=== PATIENT | male | born 1985 | race Caucasian/White ===

== ENCOUNTER 2016-04-11 15:37 | Emergency (ER) | payer OTHER ==
[~2016-04-11] VITALS: Ht 177.8 cm; Wt 120.0 kg
[2016-04-11 15:42] VITALS: Ht 177.8 cm; Wt 120.0 kg
[2016-04-11] MEDS ORDERED: ONDA4TAB14 PO (16:53)
[2016-04-11] MEDS ORDERED: LORA-441 PO (16:53)
--- NOTE | 2016-04-11 17:41 | ERD ---
ER Documentation Chief Complaint Date/Time DATE: 04/11/16 TIME: 17:37 Chief Complaint FEELS ANXIOUS RE WORK, STRESS HPI Patient is a 22-year-old male with no significant medical history presenting to the emergency department for feeling anxious for 3 days. He states that he will intermittently feel his heart racing and feel flushed. Additionally he states he has nausea and low appetite. 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 The patient denies any history of anxiety. He denies any homicidal or suicidal ideation at this time. He denies any chest pain, shortness of breath, vomiting, diarrhea or other symptoms at this time. There are no other alleviating or exacerbating factors at this time. ROS All systems reviewed and are negative except as per history of present illness. Medications Home Meds Active Scripts Ondansetron (Ondansetron Odt) 4 Mg Tab.rapdis, 4 MG PO Q6H Y for NAUSEA AND/OR VOMITING, #10 TAB Prov:TRI FERNANDO PA-C 04/11/16 Lorazepam* (Ativan*) 0.5 Mg Tablet, 0.5 MG PO Q8, #6 TAB Prov:TRI FERNANDO PA-C 04/11/16 FmHx Noncontributory for chief complaint Physical Exam Vitals Vital Signs Date Time Temp Pulse Resp B/P Pulse Ox O2 Delivery O2 Flow Rate FiO2 04/11/16 15:42 98.2 84 20 142/78 99 Physical Exam Const: The patient is [id number] and in no acute distress. Head: Atraumatic Eyes: Normal Conjunctiva ENT: Normal External Ears, Nose and Mouth. Neck: Full range of motion..~ No meningismus. Resp: Clear to auscultation bilaterally Cardio: Regular rate and rhythm, no murmurs Abd: Soft, non tender, non distended. Normal bowel sounds Skin: No petechiae or rashes Back: No midline or flank tenderness Ext: No cyanosis, or edema Neur: Awake and alert Psych: Normal Mood and Affect Procedures/MDM EKG: Interpreted by ED physician Rate/Rhythm: Normal sinus rhythm with a rate of 89 bpm. QRS, ST, T-waves: No changes consistent w/ acute ischemia Impression: No evidence of ischemia or arrhythmia MDM: 22-year-old male presents to the emergency department for acute anxiety which is been ongoing intermittently for 3 days. On physical examination the patient is resting comfortably and he adamantly denies any suicidal or homicidal ideation. EKG interpretation shows normal sinus rhythm with no signs of acute ischemia or arrhythmias. I believe that the patient's symptoms are due to acute anxiety and he will be treated as an outpatient with prescriptions for anxiety management and nausea management. Additionally the patient was counseled on ways to reduce stress in his life which included but was not limited to reducing stressful triggers at home and the workplace, meditation and yoga. The patient is in agreement with the plan. The patient was advised to follow-up with his primary care physician for possible referral to psychiatrist if required. The patient's concerns and questions have been addressed. Departure Diagnosis: Primary Impression: Anxiety Condition: Stable Patient Instructions: Your Body's Response to Anxiety Additional Instructions: Take all medicines as directed. Call your primary care doctor TOMORROW for an appointment during the next 1-2 days.See the doctor sooner or return here if your condition worsens before your appointment time.You have been given a medicine which may cause drowsiness. DO NOT DRIVE OR OPERATE DANGEROUS MACHINERY while taking this medicine! TRI FERNANDO PA-C Apr 11, 2016 17:41
== END 2016-04-11 16:52 | disposition home or self-care (01) ==
LOC: E/R 15:37
DX: F41.9 Anxiety disorder, unspecified (principal)
CPT/HCPCS: 93005